=== PATIENT | female | born 1965 | race Caucasian/White ===

== ENCOUNTER → 2021-04-23 09:32 | Outpatient (CLI) | payer SELFPAY ==
--- NOTE | ~2021-04-23 | MMUS_ITS ---
EXAMINATION: MM diagnostic sherry BI w vicente, US breast LT limited HISTORY: Palpable left breast mass for 3-4 weeks. TECHNIQUE: Additional 3-D tomosynthesis images of the breasts were performed and synthetic 2-D images were generated. CAD analysis was submitted and interpreted. High resolution Limited left breast ultr asound was performed. COMPARISON: None BREAST PARENCHYMAL COMPOSITION: Breast composed of scattered areas of fibroglandular density. FINDINGS: MAMMOGRAPHIC FINDINGS: There are no suspicious masses, calcifications or architectural distortion in the right breast to sug gest malignancy. There is a 3.3 cm lobulated mass in the upper outer quadrant of the left breast jonna esponding to the area of palpable concern. ULTRASOUND: Limited left breast ultrasound: At 2:00, 7 cm from the nipple, there is a solid irregular shaped mass measuring 2.8 x 2.5 x 3 cm mass with mixed posterior attenuation and marginal vascularity. This jonna esponds to the mammographic finding. IMPRESSION: 1. Irregular shaped left breast mass at 2:00, 7 cm from the nipple measuring 3 x 2.8 x 2.5 cm. 2. Ultrasound-guided left breast biopsy recommended. BI-RADS category 4, suspicious findings. Reviewed, dictated and finalized at location A. HEALTH ASSISTANT IMPRESSION: 1. Irregular shaped left breast mass at 2:00, 7 cm from the nipple measuring 3 x 2.8 x 2.5 cm. 2. Ultrasound-guided left breast biopsy recommended. BI-RADS category 4, suspicious findings.
== END ==
DX: N63.20 Unspecified lump in the left breast, unspecified quadrant (principal); R92.8 Other abnormal and inconclusive findings on diagnostic imaging of breast
CPT/HCPCS: 76642; 77062; 77066; G0279